=== PATIENT | female | born 1960 | race Caucasian/White ===

== ENCOUNTER 2021-01-31 22:58 | Inpatient (IN) | payer OTHER ==
[~2021-01-31] VITALS: Ht 170.2 cm; Wt 98.9 kg
[2021-02-01] MEDS ORDERED: BUMETANIDE1 MG PO (01:54)
[2021-02-01] MEDS ORDERED: LO-DOSE ASPIRIN81 MG PO (01:54)
[2021-02-01] MEDS ORDERED: NORVASC5 MG PO (01:54)
[2021-02-01] MEDS ORDERED: DOK100 MG PO (01:57)
[2021-02-01] MEDS ORDERED: CLARITIN10 M2 PO (01:58)
[2021-02-01] MEDS ORDERED: ACID REDUCER20 MG PO (01:58)
[2021-02-01] MEDS ORDERED: FERROUS SULFAT325 MG PO (01:58)
[2021-02-01] MEDS ORDERED: LOPRESSOR50 MG PO (01:59)
[2021-02-01] MEDS ORDERED: TYLENOL325 MG PO (02:00)
[2021-02-01] MEDS ORDERED: VENTOLIN HFA 66.7 GM INH (02:01)
[2021-02-01 06:11] LABS: RED BLOOD COUNT 2.17 M/UL (4.00-5.10); WHITE BLOOD COUNT 11.4 K/UL (4.5-11.0)
[2021-02-01 06:14] LABS: HEMOGLOBIN 6.3 gm/dl (12.3-15.3)
--- NOTE | 2021-02-01 06:18 | NUR ---
NOTIFIED DR ORO OF CRITICAL HGB OF 6.3. RECIEVED ORDERS. WILL CONTINUE TO MONITOR.
--- NOTE | 2021-02-01 11:57 | NUR ---
DR. GONZALES NOTIFIED APPROX 1135AM OF PT SEEMING TO BE MORE SHORT OF BREATH DURING BLOOD TRANSFUSION. ALL OTHER VITAL SIGNS ARE NORMAL. DR GONZALES CAME TO BEDSIDE TO ASSESS PT AND STATES STOP BLOOD AND GIVE LASIX 80MG IV AND NOTIFY DR. RUTLEDGE. ALSO DR. GONZALES ORDERED LABS TO BE DONE. PT AWAITING DIALYSIS CATHETER PLACEMENT. DR. BISHOP AT BEDSIDE SEEING PT. ALSO ABOUT THIS PROCEDURE TO BE DONE TODAY.
[2021-02-02 05:23] LABS: HEMOGLOBIN 8.1 gm/dl (12.3-15.3)
[2021-02-02 05:25] LABS: RED BLOOD COUNT 2.78 M/UL (4.00-5.10); WHITE BLOOD COUNT 8.3 K/UL (4.5-11.0)
[2021-02-02 10:15] LABS: HBSAG SCREEN Negative (Negative); HEP A AB, IGM Negative (Negative); HEP B CORE AB, IGM Negative (Negative); HEP C VIRUS AB <0.1 (0.0-0.9)
[2021-02-02 11:15] LABS: COMPLEMENT C3, SERUM 110 mg/dL (82-167); COMPLEMENT C4, SERUM 20 mg/dL (12-38)
[2021-02-02 15:11] LABS: ANTI-DSDNA ANTIBODIES <1 IU/mL (0-9)
[2021-02-03 03:38] LABS: HEMOGLOBIN 7.8 gm/dl (12.3-15.3); RED BLOOD COUNT 2.69 M/UL (4.00-5.10); WHITE BLOOD COUNT 9.8 K/UL (4.5-11.0)
[2021-02-03 11:14] LABS: ANTIGLOMERULAR BM AB 2 units (0-20)
[2021-02-03 16:14] LABS: ANTIMYELOPEROXIDASE (MPO) ABS <9.0 U/mL (0.0-9.0); ANTIPROTEINASE 3 (PR-3) ABS <3.5 U/mL (0.0-3.5); ATYPICAL PANCA <1:20 titer (Neg:<1:20); CYTOPLASMIC (C-ANCA) <1:20 titer (Neg:<1:20); PERINUCLEAR (P-ANCA) 1:20 titer (Neg:<1:20)
[2021-02-04 03:23] LABS: HEMOGLOBIN 8.2 gm/dl (12.3-15.3); RED BLOOD COUNT 2.77 M/UL (4.00-5.10); WHITE BLOOD COUNT 9.3 K/UL (4.5-11.0)
[2021-02-04 03:50] LABS: BUN/CREATININE RATIO 8 (0-10)
[2021-02-05 03:02] LABS: HEMOGLOBIN 8.2 gm/dl (12.3-15.3); RED BLOOD COUNT 2.83 M/UL (4.00-5.10); WHITE BLOOD COUNT 8.1 K/UL (4.5-11.0)
[2021-02-06 03:11] LABS: HEMOGLOBIN 8.5 gm/dl (12.3-15.3); RED BLOOD COUNT 2.94 M/UL (4.00-5.10); WHITE BLOOD COUNT 8.7 K/UL (4.5-11.0)
[2021-02-06] MEDS ORDERED: HYDRALAZINE HCL50 MG PO (11:30)
[2021-02-06] MEDS ORDERED: AMLODIPINE BESYL5 MG PO (11:30)
--- NOTE | 2021-02-06 11:46 | NUR ---
REPORT TO REINALDO NEWMAN [id number] FOR PATIENT
[2021-02-08 05:57] LABS: HEMOGLOBIN 8.1 gm/dl (12.3-15.3); RED BLOOD COUNT 2.76 M/UL (4.00-5.10); WHITE BLOOD COUNT 8.5 K/UL (4.5-11.0)
== END 2021-02-08 17:07 | disposition home or self-care (01) | DRG 673 ==
LOC: MED SURG 4 02-01 01:35 → CCU 02-01 13:04 → PROG CARE 02-03 14:48 → MED SURG 4 02-06 13:24
PROVIDERS: Internal Medicine; Internal Medicine Nephrology; Internal Medicine Pulmonary Disease; Physician Assistant; Surgery; ADMIT Internal Medicine
PROC: 05HM33Z Insertion of Infusion Device into Right Internal Jugular Vein, Percutaneous Approach (ICD-10-PCS; 2021-02-01)
PROC: B543ZZA Ultrasonography of Right Jugular Veins, Guidance (ICD-10-PCS; 2021-02-01)
PROC: 5A1D70Z Performance of Urinary Filtration, Intermittent, Less than 6 Hours Per Day (ICD-10-PCS; 2021-02-01)
PROC: 30233N1 Transfusion of Nonautologous Red Blood Cells into Peripheral Vein, Percutaneous Approach (ICD-10-PCS; 2021-02-01)
PROC: 0JH63XZ Insertion of Tunneled Vascular Access Device into Chest Subcutaneous Tissue and Fascia, Percutaneous Approach (ICD-10-PCS; principal; 2021-02-01 12:46)
PROC: 5A1D70Z Performance of Urinary Filtration, Intermittent, Less than 6 Hours Per Day (ICD-10-PCS; 2021-02-02)
PROC: 5A1D70Z Performance of Urinary Filtration, Intermittent, Less than 6 Hours Per Day (ICD-10-PCS; 2021-02-03)
PROC: 5A1D70Z Performance of Urinary Filtration, Intermittent, Less than 6 Hours Per Day (ICD-10-PCS; 2021-02-07)
DX: N18.6 End stage renal disease (principal); J81.0 Acute pulmonary edema; J18.9 Pneumonia, unspecified organism; I50.33 Acute on chronic diastolic (congestive) heart failure; J96.21 Acute and chronic respiratory failure with hypoxia; I13.0 Hypertensive heart and chronic kidney disease with heart failure and stage 1 through stage 4 chronic kidney disease, or unspecified chronic kidney disease; E87.2 Acidosis; J44.0 Chronic obstructive pulmonary disease with (acute) lower respiratory infection; I13.2 Hypertensive heart and chronic kidney disease with heart failure and with stage 5 chronic kidney disease, or end stage renal disease; E11.22 Type 2 diabetes mellitus with diabetic chronic kidney disease; Z20.822 Contact with and (suspected) exposure to COVID-19; N17.9 Acute kidney failure, unspecified; E66.01 Morbid (severe) obesity due to excess calories; Z79.899 Other long term (current) drug therapy; Z79.82 Long term (current) use of aspirin; Z99.2 Dependence on renal dialysis; E11.21 Type 2 diabetes mellitus with diabetic nephropathy; K21.9 Gastro-esophageal reflux disease without esophagitis; Z68.34 Body mass index [BMI] 34.0-34.9, adult; Z99.81 Dependence on supplemental oxygen; Z83.3 Family history of diabetes mellitus; F17.210 Nicotine dependence, cigarettes, uncomplicated; Z79.4 Long term (current) use of insulin; D63.1 Anemia in chronic kidney disease
CPT/HCPCS: 36415; 36430; 36600; 71045; 71046; 76000; 80048; 80053; 80074; 82550; 82553; 82803; 82962; 83036; 83520; 83880; 84484; 85025; 85027; 86140; 86160; 86225; 86256; 86850; 86900; 86901; 86920; 90935; 90937; 94660; 94760; J0690; J1642; J1644; J1940; J2543; J7030; P9016; P9047; U0002

== ENCOUNTER 2021-03-11 10:39 | Inpatient (IN) | payer OTHER ==
[~2021-03-11] VITALS: Ht 170.2 cm; Wt 89.8 kg
[~2021-03-11 10:39] MED LIST: ACID REDUCER20 MG PO; AMLODIPINE BESYL5 MG PO; BUMETANIDE1 MG PO; CLARITIN10 MG PO; DOK100 MG PO; FERROUS SULFAT325 MG PO; HYDRALAZINE HCL50 MG PO; LO-DOSE ASPIRIN81 MG PO; LOPRESSOR50 MG PO; NORVASC5 MG PO; TYLENOL325 MG PO; VENTOLIN HFA 66.7 GM INH
[2021-03-11 11:58] LABS: HEMOGLOBIN 10.6 gm/dl (12.3-15.3); RED BLOOD COUNT 3.66 M/UL (4.00-5.10); WHITE BLOOD COUNT 12.5 K/UL (4.5-11.0)
[2021-03-11] MEDS ORDERED: NORVASC10 MG PO (15:12)
[2021-03-11] MEDS ORDERED: PHOSLO 667 MG667 MG PO (15:49)
[2021-03-11] MEDS ORDERED: BACTROBAN OINT22 GM TOP (15:50)
[2021-03-11] MEDS ORDERED: SORBITOL 70% S480 ML PO (15:50)
[2021-03-11] MEDS ORDERED: NITROSTAT0.4 MG SL (15:51)
[2021-03-11] MEDS ORDERED: BUMETANIDE1 MG PO (15:51)
[2021-03-11] MEDS ORDERED: ALBUTEROL2.5 MG/3 M NEB (15:52)
[2021-03-12 01:03] LABS: ACINETOBACTER BAUMANNII Not Detected (Negative); CANDIDA ALBICANS Not Detected (Negative); CANDIDA KRUSEI Not Detected (Negative); CANDIDA TROPICALIS Not Detected (Negative); ENTEROCOCCUS Not Detected (Negative); ESCHERICHIA COLI Not Detected (Negative); HAEMOPHILUS INFLUENZAE Not Detected (Negative); KLEBSIELLA OXYTOCA Not Detected (Negative); KLEBSIELLA PNEUMONIAE Not Detected (Negative); KPC-CARBAPENEM-RESISTANCE GENE Not Detected (Negative); PROTEUS Not Detected (Negative); PSEUDOMONAS AERUGINOSA Not Detected (Negative); SERRATIA MARCESANS Not Detected (Negative); STREP AGALACTIAE (GROUP B) Not Detected (Negative); STREP PYOGENES (GROUP A) Not Detected (Negative); STREPTOCOCCUS Not Detected (Negative); vanA/B (VANCOMYCIN RESIST GENE Not Detected (Negative)
[2021-03-12 02:19] LABS: STAPHYLOCOCCUS DETECTED (Negative); STAPHYLOCOCCUS AUREUS DETECTED (Negative); mecA (METHICILLIN RESIST GENE DETECTED (Negative)
[2021-03-12 02:37] LABS: HEMOGLOBIN 9.7 gm/dl (12.3-15.3); RED BLOOD COUNT 3.33 M/UL (4.00-5.10)
[2021-03-12 02:45] LABS: WHITE BLOOD COUNT 43.4 K/UL (4.5-11.0)
[2021-03-13 03:19] LABS: HEMOGLOBIN 9.1 gm/dl (12.3-15.3); RED BLOOD COUNT 3.16 M/UL (4.00-5.10)
[2021-03-13 03:26] LABS: WHITE BLOOD COUNT 20.7 K/UL (4.5-11.0)
[2021-03-14 02:52] LABS: HEMOGLOBIN 8.8 gm/dl (12.3-15.3); RED BLOOD COUNT 3.09 M/UL (4.00-5.10)
[2021-03-14 02:56] LABS: WHITE BLOOD COUNT 8.8 K/UL (4.5-11.0)
[2021-03-15 04:45] LABS: HEMOGLOBIN 8.6 gm/dl (12.3-15.3); RED BLOOD COUNT 2.98 M/UL (4.00-5.10); WHITE BLOOD COUNT 7.1 K/UL (4.5-11.0)
[2021-03-16 03:26] LABS: HEMOGLOBIN 8.8 gm/dl (12.3-15.3); RED BLOOD COUNT 3.05 M/UL (4.00-5.10); WHITE BLOOD COUNT 7.2 K/UL (4.5-11.0)
[2021-03-17] MEDS ORDERED: BACTROBAN OINT22 GM (09:12)
== END 2021-03-17 15:40 | disposition home health service (06) | DRG 314 ==
LOC: ER1 10:39 → CDU 14:03 → PROG CARE 22:00
PROVIDERS: Emergency Medicine; Internal Medicine; Internal Medicine Nephrology; Physician Assistant; ADMIT Internal Medicine
PROC: 3E033XZ Introduction of Vasopressor into Peripheral Vein, Percutaneous Approach (ICD-10-PCS; principal; 2021-03-13)
PROC: B24BZZ4 Ultrasonography of Heart with Aorta, Transesophageal (ICD-10-PCS; 2021-03-13)
PROC: 5A1D70Z Performance of Urinary Filtration, Intermittent, Less than 6 Hours Per Day (ICD-10-PCS; 2021-03-14)
PROC: 5A1D70Z Performance of Urinary Filtration, Intermittent, Less than 6 Hours Per Day (ICD-10-PCS; 2021-03-16)
DX: T82.898A Other specified complication of vascular prosthetic devices, implants and grafts, initial encounter (principal); N18.6 End stage renal disease; Z20.822 Contact with and (suspected) exposure to COVID-19; R65.21 Severe sepsis with septic shock; A41.02 Sepsis due to Methicillin resistant Staphylococcus aureus; I13.2 Hypertensive heart and chronic kidney disease with heart failure and with stage 5 chronic kidney disease, or end stage renal disease; I50.32 Chronic diastolic (congestive) heart failure; E87.2 Acidosis; Y84.0 Cardiac catheterization as the cause of abnormal reaction of the patient, or of later complication, without mention of misadventure at the time of the procedure; I95.3 Hypotension of hemodialysis; E11.21 Type 2 diabetes mellitus with diabetic nephropathy; E87.6 Hypokalemia; F17.210 Nicotine dependence, cigarettes, uncomplicated; I25.10 Atherosclerotic heart disease of native coronary artery without angina pectoris; D63.1 Anemia in chronic kidney disease; J44.9 Chronic obstructive pulmonary disease, unspecified; K59.00 Constipation, unspecified; E11.22 Type 2 diabetes mellitus with diabetic chronic kidney disease; M50.322 Other cervical disc degeneration at C5-C6 level; M50.323 Other cervical disc degeneration at C6-C7 level; Z79.4 Long term (current) use of insulin; Z93.0 Tracheostomy status; Z88.1 Allergy status to other antibiotic agents; Z83.3 Family history of diabetes mellitus; Z91.15 Patient's noncompliance with renal dialysis; Z79.01 Long term (current) use of anticoagulants; Z79.82 Long term (current) use of aspirin
CPT/HCPCS: ECHO; 36415; 70450; 71045; 72125; 80048; 80053; 82533; 82550; 82553; 82728; 82803; 82962; 83540; 83550; 83605; 83874; 84132; 84484; 85025; 85027; 87040; 87077; 87150; 87186; 90935; 90937; 93306; 94760; 96365; 96367; 96375; 96376; 99285; G0378; J0713; J0878; J1200; J1644; J2020; J2270; J2405; J2997; J7030; Q0177; U0002

== ENCOUNTER 2021-07-18 11:09 | Inpatient (IN) | payer OTHER ==
[~2021-07-18] VITALS: Ht 172.7 cm; Wt 90.3 kg
[~2021-07-18 11:09] MED LIST changes: +ALBUTEROL2.5 MG/3 M NEB; +BACTROBAN OINT22 GM; +BACTROBAN OINT22 GM TOP; +DOXYCYCLINE HY100 MG PO; +SORBITOL 70% S480 ML PO
[2021-07-18 12:34] LABS: HEMOGLOBIN 12.7 gm/dl (12.3-15.3); RED BLOOD COUNT 4.24 M/UL (4.00-5.10); WHITE BLOOD COUNT 8.3 K/UL (4.5-11.0)
[2021-07-18] MEDS ORDERED: NORVASC10 MG PO (15:12)
[2021-07-18] MEDS ORDERED: PHOSLO 667 MG667 MG PO (15:49)
[2021-07-18] MEDS ORDERED: NITROSTAT0.4 MG SL (15:51)
[2021-07-18] MEDS ORDERED: FAMOTIDINE20 MG PO (18:53)
[2021-07-19 03:39] LABS: HEMOGLOBIN 11.6 gm/dl (12.3-15.3)
[2021-07-19 03:52] LABS: RED BLOOD COUNT 3.76 M/UL (4.00-5.10); WHITE BLOOD COUNT 15.9 K/UL (4.5-11.0)
[2021-07-20 03:33] LABS: HEMOGLOBIN 9.7 gm/dl (12.3-15.3)
[2021-07-20 03:35] LABS: RED BLOOD COUNT 3.18 M/UL (4.00-5.10); WHITE BLOOD COUNT 7.8 K/UL (4.5-11.0)
[2021-07-20 06:41] LABS: BORDETELLA PARAPERTUSSIS Not Detected (Not Detectd); BORDETELLA PERTUSSIS Not Detected (Not Detectd); CHLAMYDIA PNEUMONIAE Not Detected (Not Detectd); CORONAVIRUS HKU1 Not Detected (Not Detectd); CORONAVIRUS NL63 Not Detected (Not Detectd); CORONAVIRUS OC43 Not Detected (Not Detectd); CORONOAVIRUS 229E Not Detected (Not Detectd); HUMAN METAPNEUMOVIRUS Not Detected (Not Detectd); HUMAN RHINOVIRUS/ENTEROVIRUS Not Detected (Not Detectd); INFLUENZA A Not Detected (Not Detectd); INFLUENZA B Not Detected (Not Detectd); MYCOPLASMA PNEUMONIAE Not Detected (Not Detectd); PARAINFLUENZA VIRUS 1 Not Detected (Not Detectd); PARAINFLUENZA VIRUS 2 Not Detected (Not Detectd); PARAINFLUENZA VIRUS 3 Not Detected (Not Detectd); PARAINFLUENZA VIRUS 4 Not Detected (Not Detectd)
[2021-07-20 08:13] LABS: RESPIRATORY SYNCYTIAL VIRUS DETECTED (Not Detectd); SARS-CoV-2 NOT DETECTED (Not Detectd)
[2021-07-20 10:14] LABS: HBSAG SCREEN Negative (Negative); HEP A AB, IGM Negative (Negative); HEP B CORE AB, IGM Negative (Negative); HEP C VIRUS AB <0.1 (0.0-0.9)
[2021-07-22 03:56] LABS: HEMOGLOBIN 10.2 gm/dl (12.3-15.3); RED BLOOD COUNT 3.34 M/UL (4.00-5.10); WHITE BLOOD COUNT 6.5 K/UL (4.5-11.0)
[2021-07-23 03:50] LABS: HEMOGLOBIN 10.5 gm/dl (12.3-15.3); RED BLOOD COUNT 3.4 M/UL (4.00-5.10); WHITE BLOOD COUNT 6.7 K/UL (4.5-11.0)
[2021-07-23 09:13] LABS: HBSAG SCREEN Negative (Negative); HEP A AB, IGM Negative (Negative); HEP B CORE AB, IGM Negative (Negative); HEP C VIRUS AB <0.1 (0.0-0.9)
[2021-07-23] MEDS ORDERED: IPRAT-ALBUT 0.5-3 ML NEB (12:00)
[2021-07-23] MEDS ORDERED: SYMBICORT 16010.2 GM INH (12:00)
== END 2021-07-23 15:14 | disposition home health service (06) | DRG 193 ==
LOC: ER1 11:09 → PROG CARE 15:40 → CDU 15:40 → PROG CARE 19:15
PROVIDERS: Internal Medicine Nephrology; Student in an Organized Health Care Education/Training Program; ADMIT Internal Medicine Infectious Disease
PROC: 5A09457 Assistance with Respiratory Ventilation, 24-96 Consecutive Hours, Continuous Positive Airway Pressure (ICD-10-PCS; principal; 2021-07-18)
PROC: 5A1D70Z Performance of Urinary Filtration, Intermittent, Less than 6 Hours Per Day (ICD-10-PCS; 2021-07-20)
PROC: 5A1D70Z Performance of Urinary Filtration, Intermittent, Less than 6 Hours Per Day (ICD-10-PCS; 2021-07-22)
DX: J12.1 Respiratory syncytial virus pneumonia (principal); N18.6 End stage renal disease; G93.41 Metabolic encephalopathy; J96.21 Acute and chronic respiratory failure with hypoxia; Z20.822 Contact with and (suspected) exposure to COVID-19; I13.2 Hypertensive heart and chronic kidney disease with heart failure and with stage 5 chronic kidney disease, or end stage renal disease; I50.32 Chronic diastolic (congestive) heart failure; J44.1 Chronic obstructive pulmonary disease with (acute) exacerbation; J44.0 Chronic obstructive pulmonary disease with (acute) lower respiratory infection; R56.9 Unspecified convulsions; D63.1 Anemia in chronic kidney disease; E11.22 Type 2 diabetes mellitus with diabetic chronic kidney disease; M25.511 Pain in right shoulder; F17.200 Nicotine dependence, unspecified, uncomplicated; E11.21 Type 2 diabetes mellitus with diabetic nephropathy; E87.6 Hypokalemia; R55 Syncope and collapse; I16.0 Hypertensive urgency; K59.00 Constipation, unspecified; J44.9 Chronic obstructive pulmonary disease, unspecified; Z99.2 Dependence on renal dialysis; Z83.3 Family history of diabetes mellitus; Z88.8 Allergy status to other drugs, medicaments and biological substances; Z79.82 Long term (current) use of aspirin; Z79.899 Other long term (current) drug therapy; Z93.0 Tracheostomy status; Z99.81 Dependence on supplemental oxygen
CPT/HCPCS: 36415; 36600; 70450; 71045; 80048; 80053; 80074; 81001; 82550; 82553; 82728; 82803; 83540; 83550; 83605; 83735; 83874; 84443; 84484; 85025; 86140; 87040; 87081; 87086; 87633; 90937; 92526; 92610; 93005; 94640; 94660; 94664; 94760; 96365; 96375; 97110; 97162; 99285; J0456; J0696; J1644; J1953; J2020; J2060; J2270; J2543; J7030; U0002